=== PATIENT | female | born 1945 | race Caucasian/White ===

== ENCOUNTER 2017-08-05 14:28 | Inpatient (IN) | payer MEDICARE, OTHER ==
[~2017-08-05] VITALS: Ht 152.4 cm; Wt 96.8 kg
[~2017-08-05 14:28] MED LIST: ETOMIDATE 2 MG/ML 10 ML VIAL IVP ONE; SUCCINYLCHOLINE CHLORIDE 20 MG/ML 10 ML VIAL IVP ONE
[2017-08-05] MEDS ORDERED: DEXTROSE 50%-WATER 25 GM/50 ML SYRINGE IVP ONE ×3 (14:34→16:15)
[2017-08-05] MEDS ORDERED: NALOXONE HCL 1 MG/ML 2 ML SYG ONE (14:35)
[2017-08-05] MEDS ORDERED: RAPID SEQUENCE KIT [RSI] 1 EACH KIT ONE (14:38)
[2017-08-05] MEDS ORDERED: SUCCINYLCHOLINE CHLORIDE 20 MG/ML 10 ML VIAL ONE (14:38)
[2017-08-05] MEDS ORDERED: PROPOFOL 1000 MG/ISO-OSM 100 ML IV PRN (15:10)
[2017-08-05 15:18] LABS: EOSINOPHILS % (AUTO) 0 % (1.0-6.0); HEMATOCRIT 51.5 % (36-46); HEMOGLOBIN 15.7 g/dL (12.0-16.0); LYMPHOCYTES # (AUTO) 0.3 K/uL (1.0-4.8); LYMPHOCYTES % (AUTO) 0.9 % (22.0-44.0); MEAN CORPUSCULAR HEMOGLOBIN 27.8 pg (26.0-34.0); MEAN CORPUSCULAR HGB CONC 30.6 G/dL (31.0-37.0); MEAN CORPUSCULAR VOLUME 91 fL (80-100); MONOCYTES # (AUTO) 0.3 K/uL (0.1-1.0); MONOCYTES % (AUTO) 0.7 % (2.0-9.0); NEUTROPHILS # (AUTO) 37.3 K/uL (1.8-7.7); PLATELET COUNT (AUTO) 240 K/uL (150-450); RED BLOOD CELL COUNT(AUTO) 5.67 MIL/uL (4.00-5.20); RED CELL DISTRIBUTION WIDTH 17.3 % (11.5-14.5)
[2017-08-05 15:51] LABS: ALBUMIN 2.8 g/dL (3.4-5.0); CALCIUM, TOTAL 8.5 mg/dL (8.8-10.5); CKMB RELATIVE INDEX 4.2 % (0.0-4.0); CREATINE KINASE MB 41.3 ng/mL (0-5); CREATININE 3.9 mg/dL (0.60-1.30); TOTAL PROTEIN, SERUM 6.6 g/dL (6.4-8.2)
[2017-08-05 15:52] LABS: POTASSIUM 6.4 mmol/L (3.5-5.1)
[2017-08-05 15:54] LABS: NEUTROPHILS % (AUTO) 98.4 % (40.0-70.0)
[2017-08-05] MEDS ORDERED: VANCOMYCIN HCL 1 GM/D5% WATER 200 ML IV ONE (16:00)
[2017-08-05] MEDS ORDERED: PIPERACILLIN/TAZO 3.375 GM/D5W 50 ML IV ONE (16:00)
[2017-08-05 16:03] LABS: PLATELET MORPHOLOGY COMMENT NORMAL
[2017-08-05 16:06] LABS: ABG A-A DIFF O2 435.9 mmHg (10-20.0); ABG BASE EXCESS -3.6 mmol/L (-2.0-3.0); ABG CARBOXYHEMOGLOBIN 3.8 % (0.0-1.5); ABG HCO3 20.5 mmol/L (22.0-26.0); ABG METHEMOGLOBIN 0.3 % (0.0-1.5); ABG OXYGEN CONTENT 20.9 mL/dL (15.0-23.0); ABG OXYGEN SATURATION 99.4 % (95.0-98.0); ABG OXYHEMOGLOBIN 95.3 % (94.0-100.0); ABG PCO2 64 mmHg (35-45); ABG PH 7.198 (7.35-7.450); ABG TOTAL HEMOGLOBIN 15.3 G/dL (12.0-18.0); O2 DEVICE,BLOOD GAS VENTILATOR (ROOM AIR); PEEP,BG 5 cm H2O; PO2, ARTERIAL BG 213.2 mmHg (75.0-83.0); SITE, BLOOD GAS LFT RADIAL; SOURCE, BLOOD GAS ARTERIAL; TEMPERATURE, FAHRENHEIT, BG 98.3 FAHREN (96.0-98.6); VT, ABG 550 ml
[2017-08-05] MEDS ORDERED: ALBUTEROL SULFATE 2.5 MG/0.5 ML NEB SOLUTION NEB ONE (16:15)
[2017-08-05] MEDS ORDERED: SODIUM BICARBONATE [ADULT] 8.4% 50 MEQ/50 ML SYRINGE IVP ONE (16:15)
[2017-08-05] MEDS ORDERED: SODIUM POLYSTYRENE SULFONATE 15 GM/60 ML SUSPENSION BOTTLE PR ONE (16:15)
[2017-08-05] MEDS ORDERED: SODIUM CHLORIDE 0.9% 1,000 ML IV ONE ×2 (16:15)
[2017-08-05] MEDS ORDERED: INSULIN REGULAR, HUMAN 100 UNITS/ML IVP ONE (16:15)
[2017-08-05] MEDS ORDERED: CALCIUM GLUCONATE 100 MG/ML 10 ML IVP ONE (16:15)
[2017-08-05 16:28] LABS: APPEARANCE,URINE TURBID (CLEAR); GLUCOSE, URINE (UA) NEGATIVE (NEGATIVE); KETONES,URINE TRACE mg/dL (NEGATIVE); LEUKOCYTE ESTERASE ,URINE TRACE (NEGATIVE); NITRATE,URINE NEGATIVE (NEGATIVE); OCCULT BLOOD,URINE NEGATIVE (NEGATIVE); PROTEIN,URINE SEE CONFIRM (NEGATIVE)
[2017-08-05] MEDS: ASPIRIN 300 MG RECTAL SUPPOSITORY PR ONE ×2 (16:29→16:57)
[2017-08-05] MEDS ORDERED: AMIODARONE HCL 360 MG in DEXTROSE 5%-WATER 242.8 ML IV ONE (16:30)
[2017-08-05 16:32] LABS: BILIRUBIN,URINE PRELIM. POSITIVE (NEGATIVE)
[2017-08-05 16:37] LABS: SULFOSALICYLIC ACID,URINE 3+ (Negative)
[2017-08-05 16:38] LABS: AMORPHOUS SEDIMENT,UR Moderate /LPF (None Seen); BACTERIA,URINE Few /HPF (None Seen); RBC,URINE 0-2 /HPF (0-2); SQUAMOUS EPITHELIAL CELL,UR Few /LPF (None Seen); WBC,URINE 0-2 /HPF (0-5)
[2017-08-05] MEDS ORDERED: 0.9% SODIUM CHLORIDE 5 ML NEB SOLUTION NEB ONE (16:44)
[2017-08-05] MEDS ORDERED: 0.9% SODIUM CHLORIDE 10 ML SYRINGE IVP PRN (17:45)
[2017-08-05] MEDS ORDERED: SODIUM CHLORIDE 0.9% 500 ML IV ONE (17:45)
[2017-08-05] MEDS ORDERED: ACETAMINOPHEN 325 MG TABLET PO PRN (17:45)
[2017-08-05] MEDS ORDERED: NOREPINEPHRINE 4 MG/D5%-WATER 250 ML IV PRN (18:31)
[2017-08-05] MEDS ORDERED: ALBUTEROL SULFATE 2.5 MG/0.5 ML NEB SOLUTION NEB SCH (19:00)
[2017-08-05] MEDS ORDERED: IPRATROPIUM BROMIDE 0.5 MG/2.5 ML NEB SOLUTION NEB SCH (19:00)
[2017-08-05 19:23] LABS: OCCULT BLOOD,GASTRIC FLUID POSITIVE (NEGATIVE)
[2017-08-05 20:36] LABS: CALCIUM, TOTAL 7.9 mg/dL (8.8-10.5); CREATININE 3.62 mg/dL (0.60-1.30); POTASSIUM 5.1 mmol/L (3.5-5.1)
[2017-08-05 20:58] LABS: ALBUMIN 2.3 g/dL (3.4-5.0); BILIRUBIN,TOTAL 2.6 mg/dL (0.1-1.0); CKMB RELATIVE INDEX 3.5 % (0.0-4.0); CREATINE KINASE MB 30.7 ng/mL (0-5); TOTAL PROTEIN, SERUM 5.2 g/dL (6.4-8.2)
[2017-08-05] MEDS ORDERED: PANTOPRAZOLE SODIUM 80 MG in SODIUM CHLORIDE 0.9% 50 ML IV ONE (21:15)
[2017-08-05] MEDS ORDERED: DIGOXIN 250 MCG/ML 2 ML AMP IVP ONE (21:30)
[2017-08-05] MEDS ORDERED: ASPIRIN 81 MG CHEWABLE TABLET PO ONE (21:30)
[2017-08-05] MEDS: PROPOFOL 1000 MG/ISO-OSM 100 ML IV PRN (22:09)
[2017-08-05] MEDS ORDERED: AMIODARONE HCL 540 MG in DEXTROSE 5%-WATER 239.2 ML IV ONE (22:30)
[2017-08-05] MEDS: PANTOPRAZOLE SODIUM 80 MG in SODIUM CHLORIDE 0.9% 100 ML IV SCH (22:40)
[2017-08-06] MEDS: PROPOFOL 1000 MG/ISO-OSM 100 ML IV PRN ×3 (02:17→16:02)
[2017-08-06 05:33] LABS: GLUCOSE,POINT OF CARE 102 MG/DL (70-110)
[2017-08-06 05:43] LABS: BASOPHILS % (AUTO) 0.5 % (0.0-2.0); EOSINOPHILS % (AUTO) 0 % (1.0-6.0); HEMATOCRIT 43.4 % (36-46); HEMOGLOBIN 13.9 g/dL (12.0-16.0); LYMPHOCYTES # (AUTO) 0.7 K/uL (1.0-4.8); LYMPHOCYTES % (AUTO) 2.5 % (22.0-44.0); MEAN CORPUSCULAR HEMOGLOBIN 27.7 pg (26.0-34.0); MEAN CORPUSCULAR HGB CONC 32.1 G/dL (31.0-37.0); MEAN CORPUSCULAR VOLUME 86 fL (80-100); MONOCYTES # (AUTO) 0.4 K/uL (0.1-1.0); MONOCYTES % (AUTO) 1.6 % (2.0-9.0); NEUTROPHILS # (AUTO) 25.9 K/uL (1.8-7.7); PLATELET COUNT (AUTO) 203 K/uL (150-450); RED BLOOD CELL COUNT(AUTO) 5.03 MIL/uL (4.00-5.20); RED CELL DISTRIBUTION WIDTH 16.1 % (11.5-14.5)
[2017-08-06 05:44] LABS: NEUTROPHILS % (AUTO) 95.4 % (40.0-70.0)
[2017-08-06] MEDS: PIPERACILLIN SODIUM/TAZOBACTAM 2.25 GM in DEXTROSE 5%-WATER 50 ML IV SCH ×3 (06:00→18:02)
[2017-08-06] MEDS ORDERED: VANCOMYCIN HCL 1 GM/D5% WATER 200 ML IV ONE (06:00)
[2017-08-06] MEDS ORDERED: VANCOMYCIN HCL 1 GM/D5% WATER 200 ML IV PRN (06:00)
[2017-08-06 06:01] LABS: INR 1.5 (0.9-1.1); PROTHROMBIN TIME 15.5 SEC (9.4-11.6)
[2017-08-06 06:08] LABS: ALBUMIN 2.2 g/dL (3.4-5.0); BILIRUBIN,TOTAL 2.1 mg/dL (0.1-1.0); CALCIUM, TOTAL 7.7 mg/dL (8.8-10.5); CREATININE 3.28 mg/dL (0.60-1.30); MAGNESIUM 1.9 mg/dL (1.80-2.40); PHOSPHORUS 3.4 mg/dL (2.5-4.9); THYROID STIMULATING HORMONE 2.1 uIU/mL (0.36-3.74)
[2017-08-06 06:55] LABS: CKMB RELATIVE INDEX 2.3 % (0.0-4.0); CREATINE KINASE MB 14.3 ng/mL (0-5)
[2017-08-06] MEDS: PANTOPRAZOLE SODIUM 80 MG in SODIUM CHLORIDE 0.9% 100 ML IV SCH ×2 (07:11→16:49)
[2017-08-06 08:29] LABS: ABG A-A DIFF O2 224.8 mmHg (10-20.0); ABG CARBOXYHEMOGLOBIN 1.9 % (0.0-1.5); ABG HCO3 28.1 mmol/L (22.0-26.0); ABG METHEMOGLOBIN 0.4 % (0.0-1.5); ABG OXYGEN CONTENT 18.9 mL/dL (15.0-23.0); ABG OXYGEN SATURATION 95.9 % (95.0-98.0); ABG OXYHEMOGLOBIN 93.7 % (94.0-100.0); ABG PCO2 47 mmHg (35-45); ABG PH 7.417 (7.35-7.450); ABG TOTAL HEMOGLOBIN 14.3 G/dL (12.0-18.0); PO2, ARTERIAL BG 79.4 mmHg (75.0-83.0); SITE, BLOOD GAS RT RADIAL; SOURCE, BLOOD GAS ARTERIAL; TEMPERATURE, FAHRENHEIT, BG 98.1 FAHREN (96.0-98.6)
[2017-08-06 08:30] LABS: O2 DEVICE,BLOOD GAS VENTILATOR (ROOM AIR); PEEP,BG 5 cm H2O; VT, ABG 550 ml
[2017-08-06] MEDS ORDERED: SODIUM CHLORIDE 0.9% 100 ML ONE (13:15)
[2017-08-06] MEDS: MethylPREDNISolone SOD SUCC 125 MG/2 ML VIAL IVP SCH ×2 (15:11→21:57)
[2017-08-06] MEDS ORDERED: SODIUM CHLORIDE 0.9% 250 ML IV ONE (15:59)
[2017-08-06 16:00] VITALS: BP 125/71
[2017-08-06] MEDS ORDERED: AMIODARONE HCL 750 MG in DEXTROSE 5%-WATER 485 ML IV SCH (16:23)
[2017-08-06] MEDS: IPRATROPIUM BROMIDE 0.5 MG/2.5 ML NEB SOLUTION NEB SCH ×3 (16:27→22:58)
[2017-08-06] MEDS: ALBUTEROL SULFATE 2.5 MG/0.5 ML NEB SOLUTION NEB SCH ×3 (16:27→22:58)
[2017-08-06 16:52] LABS: CREATINE KINASE MB 6.5 ng/mL (0-5)
[2017-08-06 17:14] LABS: ALBUMIN 2.1 g/dL (3.4-5.0); BILIRUBIN,TOTAL 1.9 mg/dL (0.1-1.0); CALCIUM, TOTAL 7.7 mg/dL (8.8-10.5); CREATININE 2.84 mg/dL (0.60-1.30); POTASSIUM 3.6 mmol/L (3.5-5.1); TOTAL PROTEIN, SERUM 5.1 g/dL (6.4-8.2)
[2017-08-06 20:00] VITALS: BP 115/67
[2017-08-06] MEDS ORDERED: INFLUENZA VIRUS VACCINE QVS 2017-18 (3YR+)/PF 60 MCG/0.5 ML SYRINGE IM ONE (21:00)
[2017-08-06] MEDS ORDERED: PNEUMOCOCCAL VACCINE POLYVALENT 0.5 ML VIAL [PPSV23] IM ONE (21:00)
[2017-08-07] VITALS: BP 106/55
[2017-08-07] MEDS: PIPERACILLIN SODIUM/TAZOBACTAM 2.25 GM in DEXTROSE 5%-WATER 50 ML IV SCH ×5 (00:37→23:32)
[2017-08-07] MEDS: PROPOFOL 1000 MG/ISO-OSM 100 ML IV PRN ×4 (00:38→20:12)
[2017-08-07 02:53] LABS: APPEARANCE,URINE CLOUDY (CLEAR); BILIRUBIN,URINE NEGATIVE (NEGATIVE); GLUCOSE, URINE (UA) NEGATIVE (NEGATIVE); KETONES,URINE TRACE mg/dL (NEGATIVE); LEUKOCYTE ESTERASE ,URINE SMALL (NEGATIVE); NITRATE,URINE NEGATIVE (NEGATIVE); OCCULT BLOOD,URINE SMALL (NEGATIVE); PH,URINE 5.5 (5.0-8.0); PROTEIN,URINE TRACE (NEGATIVE)
[2017-08-07 03:42] LABS: BACTERIA,URINE Rare /HPF (None Seen); SQUAMOUS EPITHELIAL CELL,UR Rare /LPF (None Seen)
[2017-08-07] MEDS: ALBUTEROL SULFATE 2.5 MG/0.5 ML NEB SOLUTION NEB SCH ×6 (03:43→22:59)
[2017-08-07] MEDS: IPRATROPIUM BROMIDE 0.5 MG/2.5 ML NEB SOLUTION NEB SCH ×6 (03:43→22:59)
[2017-08-07 04:00] VITALS: BP 96/59
[2017-08-07] MEDS: PANTOPRAZOLE SODIUM 80 MG in SODIUM CHLORIDE 0.9% 100 ML IV SCH (04:26)
[2017-08-07] MEDS: MethylPREDNISolone SOD SUCC 125 MG/2 ML VIAL IVP SCH ×3 (05:29→20:27)
[2017-08-07 06:01] LABS: HEMATOCRIT 44.1 % (36-46); HEMOGLOBIN 14.2 g/dL (12.0-16.0); MEAN CORPUSCULAR HGB CONC 32.2 G/dL (31.0-37.0); MEAN CORPUSCULAR VOLUME 87 fL (80-100); PLATELET COUNT (AUTO) 158 K/uL (150-450); RED BLOOD CELL COUNT(AUTO) 5.08 MIL/uL (4.00-5.20); RED CELL DISTRIBUTION WIDTH 16.3 % (11.5-14.5)
[2017-08-07 06:28] LABS: % IRON SATURATION 3.7 % (22-44)
[2017-08-07 06:29] LABS: ALBUMIN 2.2 g/dL (3.4-5.0); BILIRUBIN,TOTAL 1.8 mg/dL (0.1-1.0); CALCIUM, TOTAL 7.6 mg/dL (8.8-10.5); CREATININE 2.45 mg/dL (0.60-1.30); PHOSPHORUS 3.6 mg/dL (2.5-4.9); POTASSIUM 3.2 mmol/L (3.5-5.1); TOTAL PROTEIN, SERUM 5.4 g/dL (6.4-8.2); VANCOMYCIN,RANDOM 12.9 mcg/mL (25.0-50.0)
[2017-08-07 08:00] VITALS: BP 118/60
[2017-08-07] MEDS ORDERED: VANCOMYCIN HCL 750 MG in DEXTROSE 5%-WATER 150 ML IV SCH (08:00)
[2017-08-07] MEDS: ASPIRIN 81 MG CHEWABLE TABLET PO SCH (09:10)
[2017-08-07] MEDS: POTASSIUM CHL 10 MEQ/WATER 50 ML IV SCH ×2 (09:10→10:25)
[2017-08-07 09:50] LABS: ABG A-A DIFF O2 241.4 mmHg (10-20.0); ABG BASE EXCESS 4.7 mmol/L (-2.0-3.0); ABG HCO3 28.6 mmol/L (22.0-26.0); ABG METHEMOGLOBIN 0.2 % (0.0-1.5); ABG OXYGEN CONTENT 18.9 mL/dL (15.0-23.0); ABG OXYGEN SATURATION 95.2 % (95.0-98.0); ABG OXYHEMOGLOBIN 94.1 % (94.0-100.0); ABG PCO2 37 mmHg (35-45); ABG PH 7.493 (7.35-7.450); ABG TOTAL HEMOGLOBIN 14.3 G/dL (12.0-18.0); O2 DEVICE,BLOOD GAS VENTILATOR (ROOM AIR); PO2, ARTERIAL BG 73.4 mmHg (75.0-83.0); SITE, BLOOD GAS LFT RADIAL; SOURCE, BLOOD GAS ARTERIAL
[2017-08-07 09:51] LABS: PEEP,BG 5 cm H2O; VT, ABG 550 ml
[2017-08-07 10:33] LABS: BAND NEUTROPHILS % (MANUAL) 31 % (1-5); LYMPHOCYTES % (MANUAL) 10 % (22-44); MONOCYTES % (MANUAL) 1 % (2-9); SEGMENTED NEUTROPHILS % 58 % (40-70)
[2017-08-07 12:00] VITALS: BP 106/44
[2017-08-07 15:17] LABS: HEMATOCRIT 42.3 % (36-46); HEMOGLOBIN 13.8 g/dL (12.0-16.0); MEAN CORPUSCULAR HEMOGLOBIN 27.8 pg (26.0-34.0); MEAN CORPUSCULAR HGB CONC 32.6 G/dL (31.0-37.0); MEAN CORPUSCULAR VOLUME 85 fL (80-100); PLATELET COUNT (AUTO) 146 K/uL (150-450); RED BLOOD CELL COUNT(AUTO) 4.98 MIL/uL (4.00-5.20); RED CELL DISTRIBUTION WIDTH 16.2 % (11.5-14.5)
[2017-08-07 15:53] LABS: BAND NEUTROPHILS % (MANUAL) 6 % (1-5); LYMPHOCYTES % (MANUAL) 16 % (22-44); MONOCYTES % (MANUAL) 2 % (2-9); SEGMENTED NEUTROPHILS % 76 % (40-70)
[2017-08-07 16:00] VITALS: BP 110/63
[2017-08-07] MEDS ORDERED: POTASSIUM CHLORIDE 10% 40 MEQ/30 ML LIQUID UDCUP NG PRN (16:00)
[2017-08-07] MEDS: POTASSIUM CHL 10 MEQ/WATER 50 ML IV PRN ×3 (16:34→18:37)
[2017-08-07 17:47] LABS: GLUCOSE,POINT OF CARE 152 MG/DL (70-110)
[2017-08-07 18:32] LABS: GLUCOSE,POINT OF CARE 139 MG/DL (70-110)
[2017-08-07 20:00] VITALS: BP 120/63
[2017-08-07] MEDS: AMIODARONE HCL 200 MG TABLET PO SCH (20:26)
[2017-08-07] MEDS: HEPARIN SODIUM,PORCINE 5,000 UNITS/ML VIAL SQ SCH (20:27)
[2017-08-08] VITALS (7 sets, daily range): BP systolic 111–158; BP diastolic 51–77
[2017-08-08 00:38] LABS: GLUCOSE,POINT OF CARE 152 MG/DL (70-110)
[2017-08-08] MEDS: PROPOFOL 1000 MG/ISO-OSM 100 ML IV PRN ×3 (00:38→08:07)
[2017-08-08] MEDS: IPRATROPIUM BROMIDE 0.5 MG/2.5 ML NEB SOLUTION NEB SCH ×6 (02:35→23:35)
[2017-08-08] MEDS: ALBUTEROL SULFATE 2.5 MG/0.5 ML NEB SOLUTION NEB SCH ×6 (02:35→23:35)
[2017-08-08 04:23] LABS: IGM (IMMUNOFIXATION) 58 mg/dL (26-217)
[2017-08-08 05:36] LABS: APPEARANCE,URINE TURBID (CLEAR); BILIRUBIN,URINE NEGATIVE (NEGATIVE); GLUCOSE, URINE (UA) NEGATIVE (NEGATIVE); KETONES,URINE NEGATIVE (NEGATIVE); LEUKOCYTE ESTERASE ,URINE NEGATIVE (NEGATIVE); NITRATE,URINE NEGATIVE (NEGATIVE); OCCULT BLOOD,URINE LARGE (NEGATIVE); PROTEIN,URINE NEGATIVE (NEGATIVE)
[2017-08-08] MEDS: PIPERACILLIN SODIUM/TAZOBACTAM 2.25 GM in DEXTROSE 5%-WATER 50 ML IV SCH ×3 (05:36→18:27)
[2017-08-08] MEDS: MethylPREDNISolone SOD SUCC 125 MG/2 ML VIAL IVP SCH ×3 (05:36→21:10)
[2017-08-08 05:39] LABS: CREATININE,URINE RANDOM 78.4 mg/dL (30.0-125.0); PROTEIN,URINE RANDOM 37 mg/dL (0-11.9); SODIUM,URINE RANDOM 5 mmol/l (20-110); UREA NITROGEN,URINE RANDOM 1182 mg/dL (350-1000)
[2017-08-08 06:14] LABS: CALCIUM, TOTAL 7.9 mg/dL (8.8-10.5); CREATININE 1.68 mg/dL (0.60-1.30); PHOSPHORUS 3.2 mg/dL (2.5-4.9); POTASSIUM 3.4 mmol/L (3.5-5.1)
[2017-08-08 06:29] LABS: BACTERIA,URINE Rare /HPF (None Seen); URIC ACID CRYSTALS,URINE Few /LPF (None Seen)
[2017-08-08 07:04] LABS: EOSINOPHILS % (AUTO) 0 % (1.0-6.0); HEMATOCRIT 41.8 % (36-46); HEMOGLOBIN 13.6 g/dL (12.0-16.0); LYMPHOCYTES # (AUTO) 0.2 K/uL (1.0-4.8); LYMPHOCYTES % (AUTO) 1.7 % (22.0-44.0); MEAN CORPUSCULAR HGB CONC 32.4 G/dL (31.0-37.0); MEAN CORPUSCULAR VOLUME 86 fL (80-100); MONOCYTES # (AUTO) 0.2 K/uL (0.1-1.0); MONOCYTES % (AUTO) 1.8 % (2.0-9.0); NEUTROPHILS # (AUTO) 12.6 K/uL (1.8-7.7); PLATELET COUNT (AUTO) 123 K/uL (150-450); RED BLOOD CELL COUNT(AUTO) 4.84 MIL/uL (4.00-5.20); RED CELL DISTRIBUTION WIDTH 16.1 % (11.5-14.5)
[2017-08-08 07:05] LABS: NEUTROPHILS % (AUTO) 96.5 % (40.0-70.0)
[2017-08-08 07:22] LABS: GLUCOSE,POINT OF CARE 168 MG/DL (70-110)
[2017-08-08] MEDS: AMIODARONE HCL 200 MG TABLET PO SCH ×2 (08:01→21:55)
[2017-08-08] MEDS: ASPIRIN 81 MG CHEWABLE TABLET PO SCH (08:01)
[2017-08-08] MEDS: PANTOPRAZOLE SODIUM 40 MG/VIAL IVP SCH (08:01)
[2017-08-08] MEDS: HEPARIN SODIUM,PORCINE 5,000 UNITS/ML VIAL SQ SCH ×2 (08:01→21:10)
[2017-08-08] MEDS: POTASSIUM CHL 10 MEQ/WATER 50 ML IV PRN ×2 (08:02→11:38)
[2017-08-08 08:35] LABS: ABG BASE EXCESS 1.5 mmol/L (-2.0-3.0); ABG CARBOXYHEMOGLOBIN 1.7 % (0.0-1.5); ABG HCO3 26.5 mmol/L (22.0-26.0); ABG METHEMOGLOBIN 0.2 % (0.0-1.5); ABG OXYGEN CONTENT 18.2 mL/dL (15.0-23.0); ABG OXYGEN SATURATION 93.5 % (95.0-98.0); ABG OXYHEMOGLOBIN 91.7 % (94.0-100.0); ABG PCO2 30 mmHg (35-45); ABG TOTAL HEMOGLOBIN 14.1 G/dL (12.0-18.0); PO2, ARTERIAL BG 65.2 mmHg (75.0-83.0); SOURCE, BLOOD GAS ARTERIAL; TEMPERATURE, FAHRENHEIT, BG 98.6 FAHREN (96.0-98.6)
[2017-08-08 08:41] LABS: O2 DEVICE,BLOOD GAS VENTILATOR (ROOM AIR); SITE, BLOOD GAS RT RADIAL; VT, ABG 550 ml
[2017-08-08 08:42] LABS: PEEP,BG 5 cm H2O
[2017-08-08] MEDS: VANCOMYCIN HCL 1 GM/D5% WATER 200 ML IV SCH (09:23)
[2017-08-08] MEDS ORDERED: PHENYLEPHRINE 200 MG/D5%-WATER 250 ML IV PRN (16:33)
[2017-08-08] MEDS ORDERED: FUROSEMIDE 40 MG/4 ML VIAL IVP ONE (17:15)
[2017-08-08] MEDS ORDERED: SODIUM CHLORIDE 0.9% 500 ML IV ONE (18:09)
[2017-08-08 23:08] LABS: GLUCOMETER DEV NAME(LOC) 5N 1M; GLUCOSE,POINT OF CARE 162 MG/DL (70-110)
[2017-08-09] VITALS (7 sets, daily range): BP systolic 139–162; BP diastolic 72–87
[2017-08-09] MEDS: PIPERACILLIN SODIUM/TAZOBACTAM 2.25 GM in DEXTROSE 5%-WATER 50 ML IV SCH ×5 (00:26→23:32)
[2017-08-09] MEDS: IPRATROPIUM BROMIDE 0.5 MG/2.5 ML NEB SOLUTION NEB SCH ×6 (03:34→23:18)
[2017-08-09] MEDS: ALBUTEROL SULFATE 2.5 MG/0.5 ML NEB SOLUTION NEB SCH ×6 (03:34→23:18)
[2017-08-09] MEDS: MethylPREDNISolone SOD SUCC 125 MG/2 ML VIAL IVP SCH ×3 (06:20→20:23)
[2017-08-09 07:47] LABS: EOSINOPHILS % (AUTO) 0.01 % (1.0-6.0); HEMOGLOBIN 14.8 g/dL (12.0-16.0); LYMPHOCYTES # (AUTO) 0.3 K/uL (1.0-4.8); LYMPHOCYTES % (AUTO) 1.9 % (22.0-44.0); MEAN CORPUSCULAR HEMOGLOBIN 26.9 pg (26.0-34.0); MEAN CORPUSCULAR HGB CONC 30.2 G/dL (31.0-37.0); MEAN CORPUSCULAR VOLUME 89 fL (80-100); MONOCYTES # (AUTO) 0.3 K/uL (0.1-1.0); MONOCYTES % (AUTO) 2.1 % (2.0-9.0); NEUTROPHILS # (AUTO) 14.8 K/uL (1.8-7.7); PLATELET COUNT (AUTO) 99 K/uL (150-450); RED BLOOD CELL COUNT(AUTO) 5.49 MIL/uL (4.00-5.20); RED CELL DISTRIBUTION WIDTH 16.6 % (11.5-14.5)
[2017-08-09] MEDS: AMIODARONE HCL 200 MG TABLET PO SCH ×2 (08:20→20:22)
[2017-08-09] MEDS: VANCOMYCIN HCL 1 GM/D5% WATER 200 ML IV SCH (08:20)
[2017-08-09] MEDS: ASPIRIN 81 MG CHEWABLE TABLET PO SCH (08:20)
[2017-08-09] MEDS: PANTOPRAZOLE SODIUM 40 MG/VIAL IVP SCH (08:20)
[2017-08-09] MEDS: HEPARIN SODIUM,PORCINE 5,000 UNITS/ML VIAL SQ SCH ×2 (08:21→20:23)
[2017-08-09 08:38] LABS: CREATININE 1.97 mg/dL (0.60-1.30); MAGNESIUM 2.2 mg/dL (1.80-2.40); PHOSPHORUS 6.5 mg/dL (2.5-4.9); VANCOMYCIN,RANDOM 16.3 mcg/mL (25.0-50.0)
[2017-08-09 09:09] LABS: POTASSIUM 4.3 mmol/L (3.5-5.1)
[2017-08-09] MEDS: METOPROLOL TARTRATE 50 MG TABLET PO SCH ×2 (10:27→20:24)
[2017-08-09] MEDS ORDERED: AcetaZOLAMIDE 250 MG TABLET PO ONE (11:15)
[2017-08-09] MEDS: BUDESONIDE 0.5 MG/2 ML NEB SOLUTION NEB SCH ×2 (14:00→20:37)
[2017-08-09] MEDS ORDERED: DILTIAZEM HCL 125 MG in DEXTROSE 5%-WATER 100 ML IV SCH (19:00)
[2017-08-10] MEDS: ALBUTEROL SULFATE 2.5 MG/0.5 ML NEB SOLUTION NEB SCH ×6 (02:17→22:30)
[2017-08-10] MEDS: IPRATROPIUM BROMIDE 0.5 MG/2.5 ML NEB SOLUTION NEB SCH ×6 (02:17→22:31)
[2017-08-10] MEDS: PIPERACILLIN SODIUM/TAZOBACTAM 2.25 GM in DEXTROSE 5%-WATER 50 ML IV SCH ×3 (05:33→18:21)
[2017-08-10] MEDS: MethylPREDNISolone SOD SUCC 125 MG/2 ML VIAL IVP SCH ×3 (05:33→20:08)
[2017-08-10 06:02] VITALS: BP 140/93
[2017-08-10] MEDS: BUDESONIDE 0.5 MG/2 ML NEB SOLUTION NEB SCH ×2 (06:57→20:29)
[2017-08-10 07:20] VITALS: BP 146/83
[2017-08-10] MEDS: PANTOPRAZOLE SODIUM 40 MG/VIAL IVP SCH (08:05)
[2017-08-10] MEDS: VANCOMYCIN HCL 1 GM/D5% WATER 200 ML IV SCH (08:05)
[2017-08-10] MEDS: ASPIRIN 81 MG CHEWABLE TABLET PO SCH (08:05)
[2017-08-10] MEDS: AMIODARONE HCL 200 MG TABLET PO SCH ×2 (08:06→20:09)
[2017-08-10] MEDS: METOPROLOL TARTRATE 50 MG TABLET PO SCH ×2 (08:06→20:09)
[2017-08-10] MEDS: HEPARIN SODIUM,PORCINE 5,000 UNITS/ML VIAL SQ SCH ×2 (08:06→20:08)
[2017-08-10 08:23] LABS: GLUCOSE,POINT OF CARE 155 MG/DL (70-110)
[2017-08-10 09:00] LABS: EOSINOPHILS % (AUTO) 0 % (1.0-6.0); HEMATOCRIT 49.3 % (36-46); HEMOGLOBIN 15.2 g/dL (12.0-16.0); LYMPHOCYTES # (AUTO) 0.1 K/uL (1.0-4.8); LYMPHOCYTES % (AUTO) 0.9 % (22.0-44.0); MEAN CORPUSCULAR HEMOGLOBIN 27.5 pg (26.0-34.0); MEAN CORPUSCULAR HGB CONC 30.8 G/dL (31.0-37.0); MEAN CORPUSCULAR VOLUME 89 fL (80-100); MONOCYTES # (AUTO) 0.3 K/uL (0.1-1.0); MONOCYTES % (AUTO) 1.8 % (2.0-9.0); NEUTROPHILS # (AUTO) 13.4 K/uL (1.8-7.7); PLATELET COUNT (AUTO) 85 K/uL (150-450); RED BLOOD CELL COUNT(AUTO) 5.52 MIL/uL (4.00-5.20); RED CELL DISTRIBUTION WIDTH 16.9 % (11.5-14.5)
[2017-08-10 09:01] LABS: CALCIUM, TOTAL 8.2 mg/dL (8.8-10.5); CREATININE 1.8 mg/dL (0.60-1.30); MAGNESIUM 2.3 mg/dL (1.80-2.40); POTASSIUM 4.6 mmol/L (3.5-5.1)
[2017-08-10 09:05] LABS: NEUTROPHILS % (AUTO) 97.3 % (40.0-70.0)
[2017-08-10 11:09] VITALS: BP 122/54
[2017-08-10] MEDS: FUROSEMIDE 40 MG/4 ML VIAL IVP SCH ×2 (14:16→22:04)
[2017-08-10 14:34] LABS: ABG A-A DIFF O2 146.8 mmHg (10-20.0); ABG BASE EXCESS 7.1 mmol/L (-2.0-3.0); ABG HCO3 28.3 mmol/L (22.0-26.0); ABG METHEMOGLOBIN 0.3 % (0.0-1.5); ABG OXYGEN CONTENT 19.2 mL/dL (15.0-23.0); ABG OXYGEN SATURATION 89.6 % (95.0-98.0); ABG OXYHEMOGLOBIN 87.5 % (94.0-100.0); ABG PCO2 69 mmHg (35-45); ABG PH 7.305 (7.35-7.450); ABG TOTAL HEMOGLOBIN 15.6 G/dL (12.0-18.0); O2 DEVICE,BLOOD GAS BIPAP (ROOM AIR); PO2, ARTERIAL BG 59.2 mmHg (75.0-83.0); SITE, BLOOD GAS RT RADIAL; SOURCE, BLOOD GAS ARTERIAL; TEMPERATURE, FAHRENHEIT, BG 98.7 FAHREN (96.0-98.6)
[2017-08-10 15:11] VITALS: BP 138/41
[2017-08-10] MEDS ORDERED: SODIUM CHLORIDE 0.9% 50 ML ONE (18:03)
[2017-08-10 19:49] VITALS: BP 126/70
[2017-08-11 00:15] VITALS: BP 129/87
[2017-08-11] MEDS: PIPERACILLIN SODIUM/TAZOBACTAM 2.25 GM in DEXTROSE 5%-WATER 50 ML IV SCH ×5 (00:24→23:51)
[2017-08-11] MEDS: ALBUTEROL SULFATE 2.5 MG/0.5 ML NEB SOLUTION NEB SCH ×6 (03:03→22:55)
[2017-08-11] MEDS: IPRATROPIUM BROMIDE 0.5 MG/2.5 ML NEB SOLUTION NEB SCH ×6 (03:03→22:55)
[2017-08-11 04:33] VITALS: BP 106/58
[2017-08-11] MEDS: MethylPREDNISolone SOD SUCC 125 MG/2 ML VIAL IVP SCH ×3 (05:41→20:43)
[2017-08-11 07:21] VITALS: BP 138/86
[2017-08-11] MEDS: BUDESONIDE 0.5 MG/2 ML NEB SOLUTION NEB SCH ×2 (08:07→19:17)
[2017-08-11 08:14] LABS: CALCIUM, TOTAL 8.2 mg/dL (8.8-10.5); CREATININE 2.03 mg/dL (0.60-1.30); POTASSIUM 4.1 mmol/L (3.5-5.1)
[2017-08-11 08:25] LABS: EOSINOPHILS % (AUTO) 0 % (1.0-6.0); HEMATOCRIT 46.7 % (36-46); HEMOGLOBIN 14.4 g/dL (12.0-16.0); LYMPHOCYTES # (AUTO) 0.2 K/uL (1.0-4.8); LYMPHOCYTES % (AUTO) 1.3 % (22.0-44.0); MEAN CORPUSCULAR HGB CONC 30.9 G/dL (31.0-37.0); MEAN CORPUSCULAR VOLUME 88 fL (80-100); MONOCYTES # (AUTO) 0.2 K/uL (0.1-1.0); MONOCYTES % (AUTO) 1.2 % (2.0-9.0); NEUTROPHILS # (AUTO) 14.8 K/uL (1.8-7.7); PLATELET COUNT (AUTO) 87 K/uL (150-450); RED BLOOD CELL COUNT(AUTO) 5.33 MIL/uL (4.00-5.20); RED CELL DISTRIBUTION WIDTH 16.6 % (11.5-14.5)
[2017-08-11 08:34] LABS: NEUTROPHILS % (AUTO) 97.5 % (40.0-70.0)
[2017-08-11] MEDS: ASPIRIN 81 MG CHEWABLE TABLET PO SCH (09:00)
[2017-08-11] MEDS: HEPARIN SODIUM,PORCINE 5,000 UNITS/ML VIAL SQ SCH ×2 (09:00→20:56)
[2017-08-11] MEDS: AMIODARONE HCL 200 MG TABLET PO SCH ×2 (09:37→20:43)
[2017-08-11] MEDS: METOPROLOL TARTRATE 50 MG TABLET PO SCH ×2 (09:37→20:43)
[2017-08-11] MEDS: FUROSEMIDE 40 MG/4 ML VIAL IVP SCH ×2 (09:37→20:42)
[2017-08-11] MEDS: PANTOPRAZOLE SODIUM 40 MG/VIAL IVP SCH (09:37)
[2017-08-11 12:09] LABS: ABG A-A DIFF O2 159.7 mmHg (10-20.0); ABG BASE EXCESS 5.9 mmol/L (-2.0-3.0); ABG CARBOXYHEMOGLOBIN 1.9 % (0.0-1.5); ABG HCO3 28.2 mmol/L (22.0-26.0); ABG METHEMOGLOBIN 0.2 % (0.0-1.5); ABG OXYGEN CONTENT 19.1 mL/dL (15.0-23.0); ABG OXYGEN SATURATION 92.1 % (95.0-98.0); ABG OXYHEMOGLOBIN 90.2 % (94.0-100.0); ABG PCO2 55 mmHg (35-45); ABG PH 7.372 (7.35-7.450); ABG TOTAL HEMOGLOBIN 15.1 G/dL (12.0-18.0); PO2, ARTERIAL BG 62.6 mmHg (75.0-83.0); SOURCE, BLOOD GAS ARTERIAL; TEMPERATURE, FAHRENHEIT, BG 98.2 FAHREN (96.0-98.6)
[2017-08-11 12:10] LABS: O2 DEVICE,BLOOD GAS BIPAP (ROOM AIR); SITE, BLOOD GAS LFT RADIAL
[2017-08-11 12:33] VITALS: BP 144/62
[2017-08-11 15:22] VITALS: BP 130/74
[2017-08-11 19:45] VITALS: BP 128/73
[2017-08-11] MEDS: NYSTATIN 15 GM POWDER BOTTLE TP SCH (22:42)
[2017-08-11] MEDS ORDERED: SODIUM CHLORIDE 0.9% 100 ML ONE (23:54)
[2017-08-12 00:05] VITALS: BP 137/60
[2017-08-12] MEDS: ALBUTEROL SULFATE 2.5 MG/0.5 ML NEB SOLUTION NEB SCH ×6 (02:58→23:20)
[2017-08-12] MEDS: IPRATROPIUM BROMIDE 0.5 MG/2.5 ML NEB SOLUTION NEB SCH ×6 (02:58→23:21)
[2017-08-12] MEDS: MethylPREDNISolone SOD SUCC 125 MG/2 ML VIAL IVP SCH ×3 (04:33→22:38)
[2017-08-12 04:45] VITALS: BP 142/64
[2017-08-12] MEDS: PIPERACILLIN SODIUM/TAZOBACTAM 2.25 GM in DEXTROSE 5%-WATER 50 ML IV SCH ×3 (05:16→17:07)
[2017-08-12 06:23] LABS: CALCIUM, TOTAL 8.1 mg/dL (8.8-10.5); CREATININE 1.74 mg/dL (0.60-1.30); MAGNESIUM 1.9 mg/dL (1.80-2.40); PHOSPHORUS 3.8 mg/dL (2.5-4.9); POTASSIUM 3.3 mmol/L (3.5-5.1); VANCOMYCIN,RANDOM 14.9 mcg/mL (25.0-50.0)
[2017-08-12 07:48] VITALS: BP 138/61
[2017-08-12] MEDS: BUDESONIDE 0.5 MG/2 ML NEB SOLUTION NEB SCH ×2 (07:58→19:03)
[2017-08-12] MEDS: METOPROLOL TARTRATE 50 MG TABLET PO SCH (08:38)
[2017-08-12] MEDS: AMIODARONE HCL 200 MG TABLET PO SCH ×2 (08:38→22:37)
[2017-08-12] MEDS: POTASSIUM CHL 10 MEQ/WATER 50 ML IV PRN ×3 (08:39→11:36)
[2017-08-12] MEDS: ASPIRIN 81 MG CHEWABLE TABLET PO SCH (08:39)
[2017-08-12] MEDS: HEPARIN SODIUM,PORCINE 5,000 UNITS/ML VIAL SQ SCH (08:44)
[2017-08-12] MEDS: PANTOPRAZOLE SODIUM 40 MG/VIAL IVP SCH (08:44)
[2017-08-12] MEDS: FUROSEMIDE 40 MG/4 ML VIAL IVP SCH ×2 (08:45→17:04)
[2017-08-12] MEDS ORDERED: SODIUM CHLORIDE 0.9% 100 ML ONE (09:07)
[2017-08-12] MEDS: NYSTATIN 15 GM POWDER BOTTLE TP SCH ×2 (11:36→22:38)
[2017-08-12 12:00] VITALS: BP 91/65
[2017-08-12 15:32] VITALS: BP 101/44
[2017-08-12 19:53] VITALS: BP 134/88
[2017-08-12] MEDS ORDERED: ALPRAZolam 0.25 MG TABLET PO PRN (22:30)
[2017-08-13] VITALS (7 sets, daily range): BP systolic 110–136; BP diastolic 58–92
[2017-08-13] MEDS: PIPERACILLIN SODIUM/TAZOBACTAM 2.25 GM in DEXTROSE 5%-WATER 50 ML IV SCH ×5 (00:03→23:27)
[2017-08-13] MEDS: METOPROLOL TARTRATE 50 MG TABLET PO SCH ×3 (00:04→20:50)
[2017-08-13] MEDS: ALBUTEROL SULFATE 2.5 MG/0.5 ML NEB SOLUTION NEB SCH ×6 (03:22→23:54)
[2017-08-13] MEDS: IPRATROPIUM BROMIDE 0.5 MG/2.5 ML NEB SOLUTION NEB SCH ×6 (03:22→23:54)
[2017-08-13] MEDS: MethylPREDNISolone SOD SUCC 125 MG/2 ML VIAL IVP SCH ×3 (05:09→20:50)
[2017-08-13 06:48] LABS: EOSINOPHILS % (AUTO) 0 % (1.0-6.0); HEMATOCRIT 46.9 % (36-46); HEMOGLOBIN 14.6 g/dL (12.0-16.0); LYMPHOCYTES # (AUTO) 0.2 K/uL (1.0-4.8); LYMPHOCYTES % (AUTO) 1.3 % (22.0-44.0); MEAN CORPUSCULAR HEMOGLOBIN 27.4 pg (26.0-34.0); MEAN CORPUSCULAR HGB CONC 31.2 G/dL (31.0-37.0); MEAN CORPUSCULAR VOLUME 88 fL (80-100); MONOCYTES # (AUTO) 0.1 K/uL (0.1-1.0); MONOCYTES % (AUTO) 0.3 % (2.0-9.0); NEUTROPHILS # (AUTO) 16.3 K/uL (1.8-7.7); PLATELET COUNT (AUTO) 119 K/uL (150-450); RED BLOOD CELL COUNT(AUTO) 5.32 MIL/uL (4.00-5.20)
[2017-08-13 07:06] LABS: NEUTROPHILS % (AUTO) 98.4 % (40.0-70.0)
[2017-08-13] MEDS: BUDESONIDE 0.5 MG/2 ML NEB SOLUTION NEB SCH ×2 (07:44→20:21)
[2017-08-13 07:46] LABS: CALCIUM, TOTAL 8.5 mg/dL (8.8-10.5); CREATININE 1.34 mg/dL (0.60-1.30); MAGNESIUM 1.9 mg/dL (1.80-2.40); PHOSPHORUS 3.8 mg/dL (2.5-4.9); POTASSIUM 3.5 mmol/L (3.5-5.1)
[2017-08-13] MEDS: PANTOPRAZOLE SODIUM 40 MG/VIAL IVP SCH (10:18)
[2017-08-13] MEDS: FUROSEMIDE 40 MG/4 ML VIAL IVP SCH ×2 (10:18→20:49)
[2017-08-13] MEDS: AMIODARONE HCL 200 MG TABLET PO SCH ×2 (10:18→20:50)
[2017-08-13] MEDS: ASPIRIN 81 MG CHEWABLE TABLET PO SCH (10:19)
[2017-08-13] MEDS: NYSTATIN 15 GM POWDER BOTTLE TP SCH ×2 (10:19→22:50)
[2017-08-13] MEDS ORDERED: SODIUM CHLORIDE 0.9% 250 ML IV ONE (13:32)
[2017-08-14] VITALS (7 sets, daily range): BP systolic 103–146; BP diastolic 48–84
[2017-08-14] MEDS: ALBUTEROL SULFATE 2.5 MG/0.5 ML NEB SOLUTION NEB SCH ×6 (03:05→22:48)
[2017-08-14] MEDS: IPRATROPIUM BROMIDE 0.5 MG/2.5 ML NEB SOLUTION NEB SCH ×6 (03:05→22:48)
[2017-08-14] MEDS: MethylPREDNISolone SOD SUCC 125 MG/2 ML VIAL IVP SCH ×3 (06:12→21:34)
[2017-08-14] MEDS: PIPERACILLIN SODIUM/TAZOBACTAM 2.25 GM in DEXTROSE 5%-WATER 50 ML IV SCH (06:13)
[2017-08-14 07:22] LABS: CALCIUM, TOTAL 8.3 mg/dL (8.8-10.5); CREATININE 1.2 mg/dL (0.60-1.30); MAGNESIUM 1.7 mg/dL (1.80-2.40); PHOSPHORUS 2.6 mg/dL (2.5-4.9); POTASSIUM 3.7 mmol/L (3.5-5.1)
[2017-08-14] MEDS: BUDESONIDE 0.5 MG/2 ML NEB SOLUTION NEB SCH ×2 (08:02→19:08)
[2017-08-14] MEDS: AcetaZOLAMIDE 250 MG TABLET PO SCH (09:14)
[2017-08-14] MEDS: PANTOPRAZOLE SODIUM 40 MG/VIAL IVP SCH (09:15)
[2017-08-14] MEDS: METOPROLOL TARTRATE 50 MG TABLET PO SCH ×2 (09:15→21:34)
[2017-08-14] MEDS: AMIODARONE HCL 200 MG TABLET PO SCH ×2 (09:15→21:34)
[2017-08-14] MEDS: ASPIRIN 81 MG CHEWABLE TABLET PO SCH (09:15)
[2017-08-14] MEDS: NYSTATIN 15 GM POWDER BOTTLE TP SCH ×2 (09:16→21:33)
[2017-08-14 10:18] LABS: EOSINOPHILS # (AUTO) 0.01 K/uL (0.00-0.70); EOSINOPHILS % (AUTO) 0.03 % (1.0-6.0); HEMATOCRIT 48.6 % (36-46); HEMOGLOBIN 14.6 g/dL (12.0-16.0); LYMPHOCYTES # (AUTO) 0.1 K/uL (1.0-4.8); LYMPHOCYTES % (AUTO) 0.6 % (22.0-44.0); MEAN CORPUSCULAR HEMOGLOBIN 26.9 pg (26.0-34.0); MEAN CORPUSCULAR VOLUME 90 fL (80-100); MONOCYTES # (AUTO) 0.4 K/uL (0.1-1.0); MONOCYTES % (AUTO) 1.8 % (2.0-9.0); PLATELET COUNT (AUTO) 119 K/uL (150-450); RED BLOOD CELL COUNT(AUTO) 5.41 MIL/uL (4.00-5.20); RED CELL DISTRIBUTION WIDTH 17.2 % (11.5-14.5)
[2017-08-14 10:22] LABS: NEUTROPHILS % (AUTO) 97.5 % (40.0-70.0)
[2017-08-14] MEDS ORDERED: MAGNESIUM SULFATE 1 GM in DEXTROSE 5%-WATER 50 ML IV ONE (11:00)
[2017-08-14] MEDS ORDERED: SODIUM CHLORIDE 0.9% 250 ML IV ONE (11:50)
[2017-08-14] MEDS: PIPERACILLIN/TAZO 3.375 GM/D5W 50 ML IV SCH ×2 (11:56→18:14)
[2017-08-15] MEDS: PIPERACILLIN/TAZO 3.375 GM/D5W 50 ML IV SCH ×4 (00:16→16:58)
[2017-08-15] MEDS: IPRATROPIUM BROMIDE 0.5 MG/2.5 ML NEB SOLUTION NEB SCH ×6 (03:06→23:03)
[2017-08-15] MEDS: ALBUTEROL SULFATE 2.5 MG/0.5 ML NEB SOLUTION NEB SCH ×6 (03:06→23:03)
[2017-08-15] MEDS: MethylPREDNISolone SOD SUCC 125 MG/2 ML VIAL IVP SCH ×3 (05:40→20:30)
[2017-08-15 06:31] LABS: EOSINOPHILS % (AUTO) 0.3 % (1.0-6.0); HEMATOCRIT 45.7 % (36-46); HEMOGLOBIN 14.4 g/dL (12.0-16.0); LYMPHOCYTES # (AUTO) 0.1 K/uL (1.0-4.8); LYMPHOCYTES % (AUTO) 0.6 % (22.0-44.0); MEAN CORPUSCULAR HEMOGLOBIN 27.4 pg (26.0-34.0); MEAN CORPUSCULAR HGB CONC 31.4 G/dL (31.0-37.0); MEAN CORPUSCULAR VOLUME 87 fL (80-100); MONOCYTES # (AUTO) 0.2 K/uL (0.1-1.0); NEUTROPHILS # (AUTO) 18.9 K/uL (1.8-7.7); PLATELET COUNT (AUTO) 120 K/uL (150-450); RED BLOOD CELL COUNT(AUTO) 5.23 MIL/uL (4.00-5.20); RED CELL DISTRIBUTION WIDTH 16.6 % (11.5-14.5)
[2017-08-15 07:02] VITALS: BP 121/57
[2017-08-15 07:04] LABS: CALCIUM, TOTAL 8.2 mg/dL (8.8-10.5); CREATININE 1.01 mg/dL (0.60-1.30); MAGNESIUM 2.1 mg/dL (1.80-2.40); POTASSIUM 3.1 mmol/L (3.5-5.1)
[2017-08-15] MEDS: BUDESONIDE 0.5 MG/2 ML NEB SOLUTION NEB SCH ×2 (07:17→19:12)
[2017-08-15 07:23] LABS: NEUTROPHILS % (AUTO) 98.1 % (40.0-70.0)
[2017-08-15] MEDS: PANTOPRAZOLE SODIUM 40 MG/VIAL IVP SCH (08:34)
[2017-08-15] MEDS: MULTIVITAMINS WITH MINERALS, THERAPEUTIC 15 ML UDCUP PO SCH (08:35)
[2017-08-15] MEDS: METOPROLOL TARTRATE 50 MG TABLET PO SCH ×2 (08:35→20:30)
[2017-08-15] MEDS: AcetaZOLAMIDE 250 MG TABLET PO SCH (08:35)
[2017-08-15] MEDS: ASPIRIN 81 MG CHEWABLE TABLET PO SCH (08:35)
[2017-08-15] MEDS: NYSTATIN 15 GM POWDER BOTTLE TP SCH ×2 (08:36→20:33)
[2017-08-15] MEDS: AMIODARONE HCL 200 MG TABLET PO SCH ×2 (08:36→20:30)
[2017-08-15 11:20] VITALS: BP 120/68
[2017-08-15] MEDS: POTASSIUM CHL 10 MEQ/WATER 50 ML IV PRN ×3 (12:55→15:57)
[2017-08-15 15:30] VITALS: BP 128/62
[2017-08-15 19:46] VITALS: BP 106/66
[2017-08-15 20:34] VITALS: BP 157/75
[2017-08-15 23:32] VITALS: BP 158/89
[2017-08-16] MEDS: PIPERACILLIN/TAZO 3.375 GM/D5W 50 ML IV SCH ×5 (00:05→23:44)
[2017-08-16] MEDS: IPRATROPIUM BROMIDE 0.5 MG/2.5 ML NEB SOLUTION NEB SCH ×6 (03:14→23:14)
[2017-08-16] MEDS: ALBUTEROL SULFATE 2.5 MG/0.5 ML NEB SOLUTION NEB SCH ×6 (03:14→23:14)
[2017-08-16 04:58] VITALS: BP 156/69
[2017-08-16] MEDS: MethylPREDNISolone SOD SUCC 125 MG/2 ML VIAL IVP SCH ×2 (05:42→13:49)
[2017-08-16 06:10] LABS: APPEARANCE,URINE CLEAR (CLEAR); BILIRUBIN,URINE NEGATIVE (NEGATIVE); GLUCOSE, URINE (UA) NEGATIVE (NEGATIVE); KETONES,URINE NEGATIVE (NEGATIVE); LEUKOCYTE ESTERASE ,URINE NEGATIVE (NEGATIVE); NITRATE,URINE NEGATIVE (NEGATIVE); OCCULT BLOOD,URINE MODERATE (NEGATIVE); PROTEIN,URINE TRACE (NEGATIVE)
[2017-08-16 06:23] LABS: BACTERIA,URINE Rare /HPF (None Seen); SQUAMOUS EPITHELIAL CELL,UR Rare /LPF (None Seen); WBC,URINE 0-2 /HPF (0-5); YEAST,URINE Few /HPF (None Seen)
[2017-08-16] MEDS: BUDESONIDE 0.5 MG/2 ML NEB SOLUTION NEB SCH ×2 (07:21→19:27)
[2017-08-16 08:02] VITALS: BP 161/90
[2017-08-16] MEDS: MULTIVITAMINS WITH MINERALS, THERAPEUTIC 15 ML UDCUP PO SCH (08:48)
[2017-08-16] MEDS: AMIODARONE HCL 200 MG TABLET PO SCH ×2 (08:48→20:58)
[2017-08-16] MEDS: AcetaZOLAMIDE 250 MG TABLET PO SCH (08:48)
[2017-08-16] MEDS: METOPROLOL TARTRATE 50 MG TABLET PO SCH ×2 (08:48→20:58)
[2017-08-16] MEDS: ASPIRIN 81 MG CHEWABLE TABLET PO SCH (08:49)
[2017-08-16] MEDS: PANTOPRAZOLE SODIUM 40 MG/VIAL IVP SCH (08:49)
[2017-08-16] MEDS: NYSTATIN 15 GM POWDER BOTTLE TP SCH ×2 (10:29→20:58)
[2017-08-16 11:20] VITALS: BP 143/68
[2017-08-16] MEDS: POTASSIUM CHLORIDE 20 MEQ in DEXTROSE 5%-WATER 1,000 ML IV SCH (12:14)
[2017-08-16 14:53] LABS: ABG A-A DIFF O2 165.3 mmHg (10-20.0); ABG BASE EXCESS 19.2 mmol/L (-2.0-3.0); ABG CARBOXYHEMOGLOBIN 1.9 % (0.0-1.5); ABG HCO3 38.7 mmol/L (22.0-26.0); ABG METHEMOGLOBIN 0.3 % (0.0-1.5); ABG OXYGEN CONTENT 19.4 mL/dL (15.0-23.0); ABG OXYGEN SATURATION 92.7 % (95.0-98.0); ABG OXYHEMOGLOBIN 90.7 % (94.0-100.0); ABG PH 7.376 (7.35-7.450); ABG TOTAL HEMOGLOBIN 15.2 G/dL (12.0-18.0); PO2, ARTERIAL BG 67.2 mmHg (75.0-83.0); SOURCE, BLOOD GAS ARTERIAL; TEMPERATURE, FAHRENHEIT, BG 98.7 FAHREN (96.0-98.6)
[2017-08-16 14:54] LABS: ABG PCO2 78 mmHg (35-45); O2 DEVICE,BLOOD GAS CANNULA (ROOM AIR); SITE, BLOOD GAS LFT RADIAL
[2017-08-16 15:56] VITALS: BP 150/72
[2017-08-16 20:14] VITALS: BP 147/98
[2017-08-16] MEDS: MethylPREDNISolone SOD SUCC 40 MG/ML VIAL IVP SCH (23:44)
[2017-08-16 23:48] VITALS: BP 144/76
[2017-08-17] MEDS: IPRATROPIUM BROMIDE 0.5 MG/2.5 ML NEB SOLUTION NEB SCH ×6 (02:34→23:02)
[2017-08-17] MEDS: ALBUTEROL SULFATE 2.5 MG/0.5 ML NEB SOLUTION NEB SCH ×6 (02:34→23:02)
[2017-08-17] MEDS: POTASSIUM CHLORIDE 20 MEQ in DEXTROSE 5%-WATER 1,000 ML IV SCH (03:08)
[2017-08-17] MEDS: PIPERACILLIN/TAZO 3.375 GM/D5W 50 ML IV SCH ×4 (04:57→23:22)
[2017-08-17 05:27] VITALS: BP 130/75
[2017-08-17 07:38] VITALS: BP 142/64
[2017-08-17] MEDS: BUDESONIDE 0.5 MG/2 ML NEB SOLUTION NEB SCH ×2 (07:48→19:33)
[2017-08-17] MEDS: AcetaZOLAMIDE 250 MG TABLET PO SCH (08:45)
[2017-08-17] MEDS: MethylPREDNISolone SOD SUCC 40 MG/ML VIAL IVP SCH ×3 (08:45→23:22)
[2017-08-17] MEDS: AMIODARONE HCL 200 MG TABLET PO SCH ×2 (08:45→20:13)
[2017-08-17] MEDS: PANTOPRAZOLE SODIUM 40 MG/VIAL IVP SCH (08:45)
[2017-08-17] MEDS: MULTIVITAMINS WITH MINERALS, THERAPEUTIC 15 ML UDCUP PO SCH (08:45)
[2017-08-17] MEDS: NYSTATIN 15 GM POWDER BOTTLE TP SCH ×2 (08:46→20:16)
[2017-08-17] MEDS: ASPIRIN 81 MG CHEWABLE TABLET PO SCH (08:46)
[2017-08-17] MEDS: METOPROLOL TARTRATE 50 MG TABLET PO SCH ×2 (08:48→20:13)
[2017-08-17 11:12] LABS: HEMATOCRIT 46.9 % (36-46); HEMOGLOBIN 14.5 g/dL (12.0-16.0); MEAN CORPUSCULAR HEMOGLOBIN 27.3 pg (26.0-34.0); MEAN CORPUSCULAR HGB CONC 30.9 G/dL (31.0-37.0); MEAN CORPUSCULAR VOLUME 88 fL (80-100); PLATELET COUNT (AUTO) 117 K/uL (150-450); RED CELL DISTRIBUTION WIDTH 16.8 % (11.5-14.5)
[2017-08-17 11:24] VITALS: BP 149/57
[2017-08-17 11:28] LABS: ALANINE AMINOTRANSFERASE 141 U/L (12-78); ALBUMIN 2.5 g/dL (3.4-5.0); ALKALINE PHOSPHATASE 57 U/L (46-116); ANION GAP -1 mmol/L (8-16); ASPARTATE AMINOTRANSFERASE 31 U/L (15-37); BILIRUBIN,TOTAL 1.6 mg/dL (0.1-1.0); CALCIUM, TOTAL 8.2 mg/dL (8.8-10.5); CHLORIDE 97 mmol/L (98-107); CREATININE 0.83 mg/dL (0.60-1.30); GLOMERULAR FILTR. RATE CALC > 60 mL/min (>60); GLUCOSE,RANDOM 189 mg/dL (70-110); POTASSIUM 3.4 mmol/L (3.5-5.1); SODIUM SERUM 139 mmol/L (136-145); TOTAL PROTEIN, SERUM 5.3 g/dL (6.4-8.2); UREA NITROGEN, BLOOD 35 mg/dL (7-18)
[2017-08-17 11:29] LABS: BAND NEUTROPHILS % (MANUAL) 3 % (1-5); LYMPHOCYTES % (MANUAL) 1 % (22-44); MONOCYTES % (MANUAL) 1 % (2-9); SEGMENTED NEUTROPHILS % 95 % (40-70)
[2017-08-17 11:40] LABS: CARBON DIOXIDE 43 mmol/L (22-29)
[2017-08-17] MEDS: POTASSIUM CHL 10 MEQ/WATER 50 ML IV PRN ×3 (14:26→16:42)
[2017-08-17] MEDS: BENZOCAINE/MENTHOL LOZENGE [8 LOZENGES/PACKET] PO PRN (14:35)
[2017-08-17 15:36] VITALS: BP 136/80
[2017-08-17 20:31] VITALS: BP 148/87
[2017-08-18] VITALS (7 sets, daily range): BP systolic 135–158; BP diastolic 72–91
[2017-08-18] MEDS: IPRATROPIUM BROMIDE 0.5 MG/2.5 ML NEB SOLUTION NEB SCH ×6 (02:57→23:46)
[2017-08-18] MEDS: ALBUTEROL SULFATE 2.5 MG/0.5 ML NEB SOLUTION NEB SCH ×6 (02:57→23:45)
[2017-08-18] MEDS: PIPERACILLIN/TAZO 3.375 GM/D5W 50 ML IV SCH ×3 (05:09→17:36)
[2017-08-18] MEDS: BUDESONIDE 0.5 MG/2 ML NEB SOLUTION NEB SCH ×2 (08:28→20:22)
[2017-08-18] MEDS: MethylPREDNISolone SOD SUCC 40 MG/ML VIAL IVP SCH ×2 (08:49→16:15)
[2017-08-18] MEDS: PANTOPRAZOLE SODIUM 40 MG/VIAL IVP SCH (08:51)
[2017-08-18] MEDS: ASPIRIN 81 MG CHEWABLE TABLET PO SCH (08:51)
[2017-08-18] MEDS: MULTIVITAMINS WITH MINERALS, THERAPEUTIC 15 ML UDCUP PO SCH (08:52)
[2017-08-18] MEDS: AcetaZOLAMIDE 250 MG TABLET PO SCH (08:52)
[2017-08-18] MEDS: AMIODARONE HCL 200 MG TABLET PO SCH ×2 (08:52→21:30)
[2017-08-18] MEDS: METOPROLOL TARTRATE 50 MG TABLET PO SCH ×2 (08:53→21:30)
[2017-08-18] MEDS: NYSTATIN 15 GM POWDER BOTTLE TP SCH ×2 (08:53→21:48)
[2017-08-18] MEDS: BENZOCAINE/MENTHOL LOZENGE [8 LOZENGES/PACKET] PO PRN ×2 (09:02→21:48)
[2017-08-19] MEDS: MethylPREDNISolone SOD SUCC 40 MG/ML VIAL IVP SCH ×3 (00:38→17:13)
[2017-08-19] MEDS: PIPERACILLIN/TAZO 3.375 GM/D5W 50 ML IV SCH ×4 (00:38→17:20)
[2017-08-19] MEDS: IPRATROPIUM BROMIDE 0.5 MG/2.5 ML NEB SOLUTION NEB SCH ×4 (02:28→16:30)
[2017-08-19] MEDS: ALBUTEROL SULFATE 2.5 MG/0.5 ML NEB SOLUTION NEB SCH ×4 (02:28→16:30)
[2017-08-19 04:04] VITALS: BP 151/86
[2017-08-19 06:59] LABS: EOSINOPHILS # (AUTO) 0.01 K/uL (0.00-0.70); EOSINOPHILS % (AUTO) 0.04 % (1.0-6.0); HEMATOCRIT 46.2 % (36-46); HEMOGLOBIN 14.3 g/dL (12.0-16.0); LYMPHOCYTES # (AUTO) 0.7 K/uL (1.0-4.8); LYMPHOCYTES % (AUTO) 3.8 % (22.0-44.0); MEAN CORPUSCULAR HEMOGLOBIN 26.9 pg (26.0-34.0); MEAN CORPUSCULAR HGB CONC 30.9 G/dL (31.0-37.0); MEAN CORPUSCULAR VOLUME 87 fL (80-100); MONOCYTES # (AUTO) 0.3 K/uL (0.1-1.0); MONOCYTES % (AUTO) 1.5 % (2.0-9.0); NEUTROPHILS # (AUTO) 16.7 K/uL (1.8-7.7); PLATELET COUNT (AUTO) 101 K/uL (150-450); RED CELL DISTRIBUTION WIDTH 16.6 % (11.5-14.5)
[2017-08-19 07:09] LABS: NEUTROPHILS % (AUTO) 94.6 % (40.0-70.0)
[2017-08-19 07:15] VITALS: BP 136/75
[2017-08-19 07:16] LABS: ANION GAP 3 mmol/L (8-16); CALCIUM, TOTAL 8.2 mg/dL (8.8-10.5); CARBON DIOXIDE 40 mmol/L (22-29); CHLORIDE 98 mmol/L (98-107); CREATININE 0.75 mg/dL (0.60-1.30); GLOMERULAR FILTR. RATE CALC > 60 mL/min (>60); GLUCOSE,RANDOM 147 mg/dL (70-110); PHOSPHORUS 2.8 mg/dL (2.5-4.9); POTASSIUM 3.1 mmol/L (3.5-5.1); SODIUM SERUM 141 mmol/L (136-145); UREA NITROGEN, BLOOD 29 mg/dL (7-18)
[2017-08-19] MEDS: BUDESONIDE 0.5 MG/2 ML NEB SOLUTION NEB SCH (07:21)
[2017-08-19] MEDS ORDERED: POTASSIUM CHL 10 MEQ/WATER 50 ML IV SCH (07:45)
[2017-08-19] MEDS ORDERED: POTASSIUM CHLORIDE 20 MEQ ER TABLET PO ONE (07:45)
[2017-08-19] MEDS ORDERED: MAGNESIUM SULFATE 1 GM in DEXTROSE 5%-WATER 50 ML IV ONE (07:45)
[2017-08-19] MEDS ORDERED: OXYGEN THERAPY IH SCH (08:00)
[2017-08-19] MEDS: AcetaZOLAMIDE 250 MG TABLET PO SCH (08:12)
[2017-08-19] MEDS: PANTOPRAZOLE SODIUM 40 MG/VIAL IVP SCH (08:12)
[2017-08-19] MEDS: MULTIVITAMINS WITH MINERALS, THERAPEUTIC 15 ML UDCUP PO SCH (08:12)
[2017-08-19] MEDS: METOPROLOL TARTRATE 50 MG TABLET PO SCH (08:13)
[2017-08-19] MEDS: ASPIRIN 81 MG CHEWABLE TABLET PO SCH (08:13)
[2017-08-19] MEDS: NYSTATIN 15 GM POWDER BOTTLE TP SCH (08:13)
[2017-08-19] MEDS: AMIODARONE HCL 200 MG TABLET PO SCH (08:13)
[2017-08-19] MEDS: POTASSIUM CHL 10 MEQ/WATER 50 ML IV PRN ×3 (09:30→12:18)
[2017-08-19 12:24] VITALS: BP 124/65
[2017-08-19 15:42] VITALS: BP 143/83
== END 2017-08-19 19:15 | disposition short-term general hospital (02) | DRG 871 ==
LOC: EMS 14:32 → ICU 08-06 12:32 → 5N 08-08 17:25 → 5S 08-14 18:31
PROVIDERS: ADMIT Internal Medicine; ATTEND Internal Medicine
PROC: 5A1945Z Respiratory Ventilation, 24-96 Consecutive Hours (ICD-10-PCS; principal; 2017-08-06)
PROC: 0BH17EZ Insertion of Endotracheal Airway into Trachea, Via Natural or Artificial Opening (ICD-10-PCS; 2017-08-06)
PROC: 06HM33Z Insertion of Infusion Device into Right Femoral Vein, Percutaneous Approach (ICD-10-PCS; 2017-08-06)
DX: A41.9 Sepsis, unspecified organism (principal); I21.A1 Myocardial infarction type 2; K72.00 Acute and subacute hepatic failure without coma; N17.0 Acute kidney failure with tubular necrosis; J18.9 Pneumonia, unspecified organism; J96.02 Acute respiratory failure with hypercapnia; J96.01 Acute respiratory failure with hypoxia; G93.41 Metabolic encephalopathy; E87.3 Alkalosis; D69.6 Thrombocytopenia, unspecified; I48.92 Unspecified atrial flutter; I47.1 Supraventricular tachycardia; Z68.41 Body mass index [BMI] 40.0-44.9, adult; J44.0 Chronic obstructive pulmonary disease with (acute) lower respiratory infection; I50.9 Heart failure, unspecified; E87.5 Hyperkalemia; E66.01 Morbid (severe) obesity due to excess calories; N18.9 Chronic kidney disease, unspecified; I48.0 Paroxysmal atrial fibrillation; E87.6 Hypokalemia; E83.42 Hypomagnesemia; E16.2 Hypoglycemia, unspecified; E88.09 Other disorders of plasma-protein metabolism, not elsewhere classified; K80.20 Calculus of gallbladder without cholecystitis without obstruction; Z79.82 Long term (current) use of aspirin; Z87.891 Personal history of nicotine dependence; Z88.5 Allergy status to narcotic agent; Z99.81 Dependence on supplemental oxygen; Z87.440 Personal history of urinary (tract) infections
CPT/HCPCS: 31500; 70450; 71250; 72192; 74018; 74150; 76770; 76856; 82271; 82570; 82784; 82805; 82962; 83540; 83550; 83605; 83735; 84100; 84132; 84155; 84156; 84165; 84300; 84443; 84540; 85007; 86038; 86162; 86255; 86256; 86334; 87040; 87070; 87081; 87205; 92610; 93005; 93306; 94002; 94003; 94640; 94660; 96365; 96366; 96368; 96375; 97110; 97162; 99291; C9113; J0282; J0330; J0610; J1160; J1644; J1815; J1940; J2310; J2543; J2704; J2920; J2930; J3370; J3475; J3480; J3490; J7040; J7050; J7060